=== PATIENT | female | born 1965 | race Caucasian/White ===

== ENCOUNTER 2017-07-05 00:17 | Emergency (ER) | payer OTHER ==
[2017-07-05 00:18] VITALS: BP 185/105; PULSE 125; RESP 16; TEMP 98.1; O2SAT 96
[2017-07-05] MEDS ORDERED: SODIUM CHLORIDE 0.9% FLUSH 10 ML FLUSH IVF PRN (00:45)
[2017-07-05] MEDS ORDERED: SODIUM CHLOR 0.9% 1000 ML INJ 1,000 ML IV ONE (00:45)
[2017-07-05] MEDS ORDERED: PROT40TA PO (00:52)
[2017-07-05] MEDS ORDERED: TOPR100T PO (00:52)
--- NOTE | 2017-07-05 01:09 | PD ---
HPI Chief Complaint: Numbness/Tingling Time Seen by Provider: 00:28 Travel History International Travel<30 days: No Contact w/Intl Traveler<30days: No Traveled to known affect area: No History of Present Illness HPI Patient is a 51-year-old female who presents to emergency room with multiple complaints. Patient reports that she has history of migraines, she does take Toprol for her migraine headaches. Patient reports that around 6:30 PM tonight , she began to have left-sided tingling to her digits #2,3 and 4 which radiates to her left hand and left elbow. Patient reports no trauma. Reports that she went to the nurse's office today to have her blood pressure checked and noted to be elevated at 171/100. Patient denies history of hypertension. Repeat blood pressure was 159 over 101. Patient also reports that she has been having some left upper back pain, reports that the back pain lasted for about an hour and has completely resolved at this time. Patient denies any chest pain or shortness of breath, denies any neck pain or cervical radiculopathy. Patient reports that she does have a slight headache at this time, reports that headache is not a thunder clap headache, denies vision changes with her headache. Reports that she does have history of migraines, but symptoms are less severe today. Patient denies any fever or chills, patient with no other complaints at this time. PFSH Past Medical History Cancer: Yes (MELONMA ) ?: Not Past Surgical History Hysterectomy: Yes (1997) Other Surgery: Yes (PELVIC MASS 2002) Social History Alcohol Use: Yes Tobacco Use: Yes (1/2 PACK A DAY ) Substance Use: No Allergies-Medications (Allergen,Severity, Reaction): Coded Allergies: diphenhydramine (Verified Allergy, Unknown, 07/05/17) Reported Meds & Prescriptions Reported Meds & Active Scripts Active Reported Protonix (Pantoprazole Sodium) 40 Mg Tab 40 Mg PO DAILY Toprol XL (Metoprolol Succinate) 100 Mg Tab 100 Mg PO DAILY Review of Systems General / Constitutional: No: Fever Eyes: No: Visual changes HENT: No: Headaches Cardiovascular: No: Chest Pain or Discomfort Respiratory: No: Shortness of Breath Gastrointestinal: No: Abdominal Pain Genitourinary: No: Dysuria Musculoskeletal: No: Pain Skin: No Rash Neurologic: Positive: Headache, Paresthesia, No: Weakness, Dizziness, Syncope, Focal Abnormalities, Coordination Problem, Tremor, Slurred Speech, Incontinence , Seizures, Sensory Disturbance, Other Psychiatric: No: Depression Endocrine: No: Polydipsia Hematologic/Lymphatic: No: Easy Bruising Physical Exam Narrative GENERAL: No acute distress, nontoxic SKIN: Focused skin assessment warm/dry. HEAD: Atraumatic. Normocephalic. EYES: Pupils equal and round. No scleral icterus. No injection or drainage. ENT: No nasal bleeding or discharge. Mucous membranes pink and moist. NECK: Trachea midline. No JVD. CARDIOVASCULAR: Regular rate and rhythm. No murmur appreciated. RESPIRATORY: No accessory muscle use. Clear to auscultation. Breath sounds equal bilaterally. GASTROINTESTINAL: Abdomen soft, non-tender, nondistended. Hepatic and splenic margins not palpable. MUSCULOSKELETAL: No obvious deformities. No clubbing. No cyanosis. No edema. NEUROLOGICAL: Awake and alert. No obvious cranial nerve deficits. Motor grossly within normal limits. Normal speech. CN 2-12 grossly intact with no neurovascular compromise, no weakness to RUE or LUE, pulses intact, neurovascularly intact PSYCHIATRIC: Appropriate mood and affect; insight and judgment normal. Data Data Last Documented VS Vital Signs Date Time Temp Pulse Resp B/P (MAP) Pulse Ox O2 Delivery O2 Flow Rate FiO2 07/05/17 02:13 96 16 171/95 (120) 99 07/05/17 00:18 98.1 Room Air Orders Orders Electrocardiogram (07/05/17 00:37) Ckmb (Isoenzyme) Profile (07/05/17 00:37) Complete Blood Count With Diff (07/05/17 00:37) Comprehensive Metabolic Panel (07/05/17 00:37) D-Dimer (07/05/17 00:37) Magnesium (Mg) (07/05/17 00:37) Prothrombin Time / Inr (Pt) (07/05/17 00:37) Act Partial Throm Time (Ptt) (07/05/17 00:37) Troponin I (07/05/17 00:37) Chest, Single Ap (07/05/17 00:37) Ecg Monitoring (07/05/17 00:37) Iv Access Insert/Monitor (07/05/17 00:37) Oximetry (07/05/17 00:37) Sodium Chloride 0.9% Flush (Ns Flush) (07/05/17 00:45) Sodium Chlor 0.9% 1000 Ml Inj (Ns 1000 M (07/05/17 00:45) CKMB (07/05/17 01:00) CKMB% (07/05/17 01:00) Dexamethasone Inj (Decadron Inj) (07/05/17 02:00) Ketorolac Inj (Toradol Inj) (07/05/17 02:00) Ct Brain W/O Iv Contrast(Rout) (07/05/17 02:05) Potassium Chloride (Kcl) (07/05/17 03:15) Labs Laboratory Tests Test 07/05/17 01:00 White Blood Count 12.1 TH/MM3 Red Blood Count 4.93 MIL/MM3 Hemoglobin 16.2 GM/DL Hematocrit 46.0 % Mean Corpuscular Volume 93.3 FL Mean Corpuscular Hemoglobin 33.0 PG Mean Corpuscular Hemoglobin Concent 35.3 % Red Cell Distribution Width 12.4 % Platelet Count 289 TH/MM3 Mean Platelet Volume 8.5 FL Neutrophils (%) (Auto) 59.6 % Lymphocytes (%) (Auto) 27.6 % Monocytes (%) (Auto) 7.5 % Eosinophils (%) (Auto) 4.5 % Basophils (%) (Auto) 0.8 % Neutrophils # (Auto) 7.2 TH/MM3 Lymphocytes # (Auto) 3.3 TH/MM3 Monocytes # (Auto) 0.9 TH/MM3 Eosinophils # (Auto) 0.5 TH/MM3 Basophils # (Auto) 0.1 TH/MM3 CBC Comment DIFF FINAL Differential Comment Prothrombin Time 10.7 SEC Prothromb Time International Ratio 1.0 RATIO Activated Partial Thromboplast Time 26.4 SEC D-Dimer Quantitative (PE/DVT) 0.23 MG/L FEU Blood Urea Nitrogen 6 MG/DL Creatinine 1.12 MG/DL Random Glucose 108 MG/DL Total Protein 8.8 GM/DL Albumin 4.2 GM/DL Calcium Level 9.5 MG/DL Magnesium Level 2.1 MG/DL Alkaline Phosphatase 126 U/L Aspartate Amino Transf (AST/SGOT) 26 U/L Alanine Aminotransferase (ALT/SGPT) 41 U/L Total Bilirubin 0.5 MG/DL Sodium Level 140 MEQ/L Potassium Level 3.3 MEQ/L Chloride Level 105 MEQ/L Carbon Dioxide Level 23.8 MEQ/L Anion Gap 11 MEQ/L Estimat Glomerular Filtration Rate 52 ML/MIN Total Creatine Kinase 122 U/L Creatine Kinase MB 0.9 NG/ML Troponin I 0.03 NG/ML MDM Medical Decision Making Medical Screen Exam Complete: Yes Emergency Medical Condition: Yes Medical Record Reviewed: Yes Interpretation(s) EKG at 0119: Sinus tach at 104bpm, qt/qtc: 331/391, no acute st or t wave changes Vital Signs Date Time Temp Pulse Resp B/P (MAP) Pulse Ox O2 Delivery O2 Flow Rate FiO2 07/05/17 00:18 98.1 125 16 185/105 (131) 96 Room Air Differential Diagnosis Paraesthesias, radiculopathy, aortic dissection, acs, pe, complicated migraine, cva though unlikely Narrative Course 51 year old female who presents to ER with complains of paraesthesia's to left hand digit number 3-5. Reports onset of symptoms around 6:30pm today Patient was placed on a monitoring manager, ekg ordered. Lab work including d.dimer ordered. Chest xray ordered. Will observe patient Vital Signs Date Time Temp Pulse Resp B/P (MAP) Pulse Ox O2 Delivery O2 Flow Rate FiO2 07/05/17 02:13 96 16 171/95 (120) 99 07/05/17 00:18 98.1 125 16 185/105 (131) 96 Room Air Laboratory Tests Test 07/05/17 01:00 White Blood Count 12.1 TH/MM3 (4.0-11.0) Red Blood Count 4.93 MIL/MM3 (4.00-5.30) Hemoglobin 16.2 GM/DL (11.6-15.3) Hematocrit 46.0 % (35.0-46.0) Mean Corpuscular Volume 93.3 FL (80.0-100.0) Mean Corpuscular Hemoglobin 33.0 PG (27.0-34.0) Mean Corpuscular Hemoglobin Concent 35.3 % (32.0-36.0) Red Cell Distribution Width 12.4 % (11.6-17.2) Platelet Count 289 TH/MM3 (150-450) Mean Platelet Volume 8.5 FL (7.0-11.0) Neutrophils (%) (Auto) 59.6 % (16.0-70.0) Lymphocytes (%) (Auto) 27.6 % (9.0-44.0) Monocytes (%) (Auto) 7.5 % (0.0-8.0) Eosinophils (%) (Auto) 4.5 % (0.0-4.0) Basophils (%) (Auto) 0.8 % (0.0-2.0) Neutrophils # (Auto) 7.2 TH/MM3 (1.8-7.7) Lymphocytes # (Auto) 3.3 TH/MM3 (1.0-4.8) Monocytes # (Auto) 0.9 TH/MM3 (0-0.9) Eosinophils # (Auto) 0.5 TH/MM3 (0-0.4) Basophils # (Auto) 0.1 TH/MM3 (0-0.2) CBC Comment DIFF FINAL Differential Comment Prothrombin Time 10.7 SEC (9.8-11.6) Prothromb Time International Ratio 1.0 RATIO Activated Partial Thromboplast Time 26.4 SEC (24.3-30.1) D-Dimer Quantitative (PE/DVT) 0.23 MG/L FEU (0.00-0.50) Blood Urea Nitrogen 6 MG/DL (7-18) Creatinine 1.12 MG/DL (0.50-1.00) Random Glucose 108 MG/DL (74-106) Total Protein 8.8 GM/DL (6.4-8.2) Albumin 4.2 GM/DL (3.4-5.0) Calcium Level 9.5 MG/DL (8.5-10.1) Magnesium Level 2.1 MG/DL (1.5-2.5) Alkaline Phosphatase 126 U/L (45-117) Aspartate Amino Transf (AST/SGOT) 26 U/L (15-37) Alanine Aminotransferase (ALT/SGPT) 41 U/L (10-53) Total Bilirubin 0.5 MG/DL (0.2-1.0) Sodium Level 140 MEQ/L (136-145) Potassium Level 3.3 MEQ/L (3.5-5.1) Chloride Level 105 MEQ/L (98-107) Carbon Dioxide Level 23.8 MEQ/L (21.0-32.0) Anion Gap 11 MEQ/L (5-15) Estimat Glomerular Filtration Rate 52 ML/MIN (>89) Total Creatine Kinase 122 U/L (26-192) Creatine Kinase MB 0.9 NG/ML (0.5-3.6) Troponin I 0.03 NG/ML (0.02-0.05) Ct of head: neg for acute intracranial pathology All labs and all studies reviewed patient in detail. Patient with paresthesias to her left hand specifically innervating the left ulnar nerve. Patient also with elevated blood pressure with no history of high blood pressure. As per patient, she is undergoing extreme stress at this time and sleepy deprivation. This can contribute to her symptoms today, she has no focal complaints at this time, no headaches or dizziness or chest pain or shortness of breath. Her labs and studies are reassuring, she does not suffer any medical emergency at this time. Patient is safe to be discharged to home with outpatient follow-up. She will follow-up with her primary care doctor tomorrow for blood pressure recheck. Signs and symptoms of when to return to the emergency room was reviewed with patient in detail. She will return to the emergency room as needed. Diagnosis Primary Impression: Neuropathy Additional Impressions: Hypertension Qualified Codes: I10 - Essential (primary) hypertension Hypokalemia Dehydration Patient Instructions: General Instructions Departure Forms: Tests/Procedures, Work Release Enter return to work date: Jul 09, 2017 Additional Instructions: Please follow up with your primary care doctor tomorrow Return to the ER if symptoms worsen or persist Return to the ER as needed Please drink plenty of fluids Disposition: 01 DISCHARGE HOME Condition: Stable Jesi Kingdonald Castellon Jul 05, 2017 01:08
[2017-07-05 01:15] LABS: AUTOMATED NEUTROPHIL # 7.2 TH/MM3 (1.8-7.7); BASOPHIL # 0.1 TH/MM3 (0-0.2); BASOPHIL % 0.8 % (0.0-2.0); EOSINOPHIL # 0.5 TH/MM3 (0-0.4); EOSINOPHIL % 4.5 % (0.0-4.0); HEMO FLAGS DIFF FINAL; LYMPH % 27.6 % (9.0-44.0); LYMPHOCYTE # 3.3 TH/MM3 (1.0-4.8); MEAN CELL VOLUME 93.3 FL (80.0-100.0); MEAN CORPUSCULAR HGB CONC 35.3 % (32.0-36.0); MONO % 7.5 % (0.0-8.0); NEUT % 59.6 % (16.0-70.0); PLATELET COUNT 289 TH/MM3 (150-450); RED BLOOD COUNT 4.93 MIL/MM3 (4.00-5.30); RED CELL DISTRIBUTION WIDTH 12.4 % (11.6-17.2); WHITE BLOOD COUNT 12.1 TH/MM3 (4.0-11.0)
--- NOTE | 2017-07-05 01:33 | RADRPT ---
EXAM DATE/TIME: 07/05/2017 01:16 [facility] COMPARISON: No previous studies available for comparison. INDICATIONS : Chest discomfort. Left arm numbness. MEDICAL HISTORY : None. SURGICAL HISTORY : None. ENCOUNTER: Initial ACUITY: 2 days PAIN SCORE: 110 LOCATION: Left chest FINDINGS: A single view of the chest demonstrates the lungs to be symmetrically aerated without evidence of mas s, infiltrate or effusion. The cardiomediastinal contours are unremarkable. Osseous structures are acutely intact. Apparent old fracture posteriorly of the left eighth rib. CONCLUSION: No evidence of acute cardiopulmonary disease. Desmond Curry MD on July 05, 2017 at 1:31 Board Certified Radiologist. This report was verified electronically.
[2017-07-05 01:35] LABS: ANION GAP 11 MEQ/L (5-15); AST (GOT) 26 U/L (15-37); BICARBONATE 23.8 MEQ/L (21.0-32.0); BLOOD UREA NITROGEN 6 MG/DL (7-18); CHLORIDE 105 MEQ/L (98-107); GLOMERULAR FILTRATION RATE 52 ML/MIN (>89); MAGNESIUM 2.1 MG/DL (1.5-2.5); POTASSIUM 3.3 MEQ/L (3.5-5.1); SODIUM (NA) 140 MEQ/L (136-145)
[2017-07-05 01:36] LABS: APTT (PATIENT) 26.4 SEC (24.3-30.1); PROTHROMBIN TIME - PATIENT 10.7 SEC (9.8-11.6)
[2017-07-05 01:50] LABS: ALKALINE PHOSPHATASE 126 U/L (45-117); ALT (GPT) 41 U/L (10-53); CREATINE KINASE 122 U/L (26-192); TOTAL BILIRUBIN ADULT 0.5 MG/DL (0.2-1.0)
[2017-07-05] MEDS ORDERED: KETOROLAC TROMETHAMINE 60 MG/2 ML (IM) VIAL IM ONE (02:00)
[2017-07-05] MEDS ORDERED: DEXAMETHASONE SOD PHOS 20 MG/5 ML VIAL IM ONE (02:00)
[2017-07-05 02:02] LABS: CKMB 0.9 NG/ML (0.5-3.6)
[2017-07-05 02:13] VITALS: BP 171/95; PULSE 96; RESP 16; O2SAT 99
--- NOTE | 2017-07-05 03:07 | RADRPT ---
EXAM DATE/TIME: 07/05/2017 02:27 [facility] COMPARISON: No previous studies available for comparison. INDICATIONS : Headaches with numbness left side. RADIATION DOSE: 39.87 CTDIvol (mGy) MEDICAL HISTORY : Melanoma SURGICAL HISTORY : Hysterectomy. ENCOUNTER: Initial ACUITY: 1 day PAIN SCALE: 0/10 LOCATION: cranial TECHNIQUE: Multiple contiguous axial images were obtained of the head. Using automated exposure control and adj ustment of the mA and/or kV according to patient size, radiation dose was kept as low as reasonably a chievable to obtain optimal diagnostic quality images. DICOM format image data is available electro nically for review and comparison. FINDINGS: CEREBRUM: The ventricles are normal for age. No evidence of midline shift, mass lesion, hemorrhage or acute in farction. No extra-axial fluid collections are seen. POSTERIOR FOSSA: The cerebellum and brainstem are intact. The 4th ventricle is midline. The cerebellopontine angle i s unremarkable. EXTRACRANIAL: The visualized portion of the orbits is intact. SKULL: The calvaria is intact. No evidence of skull fracture. CONCLUSION: Negative noncontrast head CT. Desmond Curry MD on July 05, 2017 at 3:05 Board Certified Radiologist. This report was verified electronically.
[2017-07-05] MEDS ORDERED: POTASSIUM CHLORIDE 10 MEQ CONTROLLED RELEASE TAB PO ONE (03:15)
[2017-07-05 03:30] VITALS: BP 136/77
--- NOTE | 2017-07-05 14:36 | EKG ---
Date Performed: 07/05/2017 Time Performed: 01:19:04 PTAGE: 51 years EKG: SINUS TACHYCARDIA POSSIBLE LEFT ATRIAL ENLARGEMENT POSSIBLE ANTERIOR MYOCARDIAL INFARCTION ABNORMAL RHYTHM ECG NO PREVIOUS TRACING DOCTOR: Rafael Whittington Interpretating Date/Time 07/05/2017 14:35:10
== END 2017-07-05 03:44 | disposition home or self-care (01) ==
LOC: NEPC 00:17
DX: G62.9 Polyneuropathy, unspecified (principal); R94.31 Abnormal electrocardiogram [ECG] [EKG]; I10 Essential (primary) hypertension; R51 Headache; E87.6 Hypokalemia; E86.0 Dehydration; Z72.0 Tobacco use
CPT/HCPCS: 70450; 71010; 80053; 82550; 82552; 83735; 84484; 85025; 85379; 85610; 85730; 93005; 96360; 99285; J7030